=== PATIENT | male | born 1985 | race Caucasian/White ===

== ENCOUNTER 2018-06-11 14:36 | Emergency (ER) | payer OTHER ==
[2018-06-11 14:47] VITALS: RESP 18
--- NOTE | 2018-06-11 15:10 | ED ---
General Adult HPI - General Chief complaint: Anxiety Stated complaint: Anxiety/Depression Time Seen by Provider: 06/11/18 14:52 Source: patient, RN notes reviewed Mode of arrival: ambulatory Limitations: no limitations - History of Present Illness Initial comments: Patient is a 33-year-old male presented to the emergency room today with chief complaint of increased anxiety. Patient does admit that he's felt somewhat depressed as well. He states that he has a history of anxiety is currently on Zoloft. He states he woke up 3 days ago in the morning and felt some anxiety. He states he has not been able to get her to calm down. He states he feels it into his chest but is crawling up. Patient states that he's also tried some Lexapro he believes the last few days to help with the symptoms. He has tried follow-up the family doctor who advised come here to the emergency room. Patient denies any suicidal thoughts or plans. She does admit that he has seen counselors in the past but is been a long-time is currently not seen anyone and has been following up with family doctor for Zoloft. Patient denies any other complaints. Patient denies any recent fever, chills, shortness of breath, chest pain, back pain, headaches or visual changes, or any other complaints. - Related Data Home Medications Medication Instructions Recorded Confirmed Sertraline [Zoloft] 100 mg PO DAILY 06/11/18 06/11/18 Previous Rx's Medication Instructions Recorded ALPRAZolam [Xanax] 0.5 mg PO BID PRN #6 tablet 06/11/18 Allergies Allergy/AdvReac Type Severity Reaction Status Date / Time No Known Allergies Allergy Verified 06/11/18 16:12 Review of Systems ROS Statement: Those systems with pertinent positive or pertinent negative responses have been documented in the HPI. ROS Other: All systems not noted in ROS Statement are negative. Past Medical History Past Medical History: No Reported History Additional Past Medical History / Comment(s): OCD History of Any Multi-Drug Resistant Organisms: None Reported Past Surgical History: Joint Replacement Past Psychological History: No Psychological Hx Reported Smoking Status: Current every day smoker Past Alcohol Use History: None Reported Past Drug Use History: Marijuana General Exam - General Exam Comments Initial Comments: General: The patient is awake and alert, in no distress, and does not appear acutely ill. Eye: Pupils are equal, round and reactive to light, extra-ocular movements are intact. No nystagmus. There is normal conjunctiva bilaterally. No signs of icterus. Neck: The neck is supple, there is no tenderness or JVD. Cardiovascular: There is a regular rate and rhythm. No murmur, rub or gallop is appreciated. Respiratory: Lungs are clear to auscultation, respirations are non-labored, breath sounds are equal. No wheezes, stridor, rales, or rhonchi. Musculoskeletal: Normal ROM, no tenderness. Strength 5/5. Sensation intact. Pulses equal bilaterally 2+. Neurological: A&O x 3. CN II-XII intact, There are no obvious motor or sensory deficits. Coordination appears grossly intact. Speech is normal. Skin: Skin is warm and dry and no rashes or lesions are noted. Psychiatric: Cooperative. Anxious. Limitations: no limitations Course Vital Signs 06/11/18 14:44 Temperature 98.0 F Pulse Rate 103 H Respiratory 18 Rate Blood Pressure 139/81 O2 Sat by Pulse 98 Oximetry Medical Decision Making - Medical Decision Making Patient has been seen here in the emergency room by mental health. They recommended that patient can be discharged home. He does state that he will follow-up the family doctor tomorrow. Patient will be given a short prescription of Xanax to go home with. Patient is advised to return here to emergency room for any other concerns. - Lab Data Lab Results 06/11/18 Range/Units 16:47 Urine Opiates Screen Not Detected (NotDetected) Ur Oxycodone Screen Not Detected (NotDetected) Urine Methadone Screen Not Detected (NotDetected) Ur Propoxyphene Screen Not Detected (NotDetected) Ur Barbiturates Screen Not Detected (NotDetected) U Tricyclic Antidepress Not Detected (NotDetected) Ur Phencyclidine Scrn Not Detected (NotDetected) Ur Amphetamines Screen Not Detected (NotDetected) U Methamphetamines Scrn Not Detected (NotDetected) U Benzodiazepines Scrn Detected H (NotDetected) Urine Cocaine Screen Not Detected (NotDetected) U Marijuana (THC) Screen Detected H (NotDetected) Disposition Clinical Impression: Depression, Acute anxiety Disposition: HOME SELF-CARE Condition: Good Instructions: Generalized Anxiety Disorder (ED) Additional Instructions: Please use medication as discussed. Please follow-up with family doctor tomorrow as discussed. Please return to emergency room if the symptoms increase or worsen or for any other concerns. Prescriptions: ALPRAZolam [Xanax] 0.5 mg PO BID PRN #6 tablet PRN Reason: Anxiety Is patient prescribed a controlled substance at d/c from ED?: No Referrals: Virgie Landa MD [Primary Care Provider] - 1-2 days Time of Disposition: 17:20
[2018-06-11 17:00] LABS: Amphetamine Screen,Urine Not Detected (NotDetected); Barbiturate Screen,Urine Not Detected (NotDetected); Benzodiazepines Screen,Urine Detected (NotDetected); Cocaine Screen,Urine Not Detected (NotDetected); Methadone Screen, Urine Not Detected (NotDetected); Opiate Screen,Urine Not Detected (NotDetected); Oxycodone Screen, Urine Not Detected (NotDetected); Phencyclidine Screen,Urine Not Detected (NotDetected); Tricyclic Antidepressant,Urine Not Detected (NotDetected); Urn Cannabinoid Scrn Detected (NotDetected)
[2018-06-11 17:45] VITALS: BP 132/80; PULSE 83; TEMP 97.7
== END 2018-06-11 17:45 | disposition home or self-care (01) ==
LOC: EC 14:36
DX: F41.9 Anxiety disorder, unspecified (principal); F32.9 Major depressive disorder, single episode, unspecified; F42.9 Obsessive-compulsive disorder, unspecified; F17.200 Nicotine dependence, unspecified, uncomplicated; Z79.899 Other long term (current) drug therapy; Z98.890 Other specified postprocedural states
CPT/HCPCS: 80306; 82075; 99284